=== PATIENT | male | born 1965 | race Caucasian/White ===

== ENCOUNTER 2025-02-19 05:50 | Day surgery (SDC) | payer OTHER ==
[2025-02-15 08:36] VITALS: BP 154/97
[~2025-02-19] VITALS: Ht 182.9 cm; Wt 111.4 kg
[~2025-02-19 05:50] MED LIST: CHLORTHALIDONE25 MG PO; COZAAR100 MG PO; MIDAZOLAM HCL 5 MG/5 ML VIAL IV PRN; SIMVASTATIN20 MG PO; TYLENOL325 MG PO; fentaNYL citrate 100 MCG/2 ML VIAL IV PRN
[2025-02-19 06:04] VITALS: BP 159/110
[2025-02-19] MEDS ORDERED: ROSUVASTATIN CAL5 MG PO (06:08)
[2025-02-19 06:28] VITALS: BP 152/95
[2025-02-19] MEDS ORDERED: propofoL 200 MG/20 ML VIAL ONE (06:33)
[2025-02-19] MEDS ORDERED: LIDOCAINE HCL 1% 5 ML SDV INJ ONE (07:00)
[2025-02-19] MEDS ORDERED: IBLOOD GLUCOSE TEST STRIP 1 EA TEST VI PRN (07:00)
[2025-02-19] MEDS ORDERED: LACTATED RINGER'S 1,000 ML IV SCH (07:00)
[2025-02-19] MEDS ORDERED: LACTATED RINGER'S 1,000 ML IV ONE (08:05)
[2025-02-19 08:49] VITALS: BP 127/93
--- NOTE | 2025-02-19 10:07 | OR ---
[facility] [address], [place] [address] Signed DATE OF OPERATION: 02/19/2025 SURGEON: Ever Lemos MD PREOPERATIVE DIAGNOSES: 1. Change in bowel habits with worsening chronic constipation. 2. Anal/rectal pain. POSTOPERATIVE DIAGNOSES: 1. 4 mm and 6 mm sessile polyps at distal right colon. 2. Minimal internal hemorrhoids. 3. Minimal to moderate sigmoid diverticulosis. PROCEDURE: Colonoscopy with hot biopsy. ESTIMATED BLOOD LOSS: None. INDICATIONS: Fredo is a 59-year-old gentleman, asked to see me for his initial screening colonoscopy. He has no family history of colon cancer or polyps. He said he has had constipation for over 10 years. He thinks it is getting worse over the last year. This represents a change in bowel habits for him. He had a negative FIT test more than one year ago. He has also had a significant hemithyroidectomy for goiter. He now has goiter on the left. It does not seem to affect his voice or his breathing. Nevertheless, we felt it was important to have monitored anesthesia care with propofol infusion for the procedure. In that regard, he needed preoperative blood work and an EKG. He also volunteered to take a ball of magnesium citrate on the day before the full gallon of MiraLAX along with Dulcolax tablets. He said he gets pain and pressure with defecation because of the constipation. He also uses some MiraLAX on a daily basis along with Metamucil for the constipation. In the office, I gave him a pamphlet on colonoscopy. We had reviewed the nature of the test. There is risk including, but not limited to gas bloating, crampy abdominal pain, bleeding, perforation requiring surgery, and missed diagnosis. He understands an adult person has to take him home afterwards. He had expressed understanding and wished to proceed. DESCRIPTION OF PROCEDURE: Fredo was taken into our endoscopy suite and placed in the left lateral decubitus position. 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 A digital rectal exam was performed. No external hemorrhoids. Good sphincter tone. No masses. His prostate is indurated and moderately enlarged. The right is more prominent than the left. The adult colonoscope was introduced and advanced all the way around into the cecum under direct visualization of the camera. It took just a little abdominal compression to get right into the cecum itself. His prep was quite good. The scope was slowly withdrawn. We saw two sessile polyps next to one another in the distal right colon. They were easily removed and destroyed completely with the hot biopsy forceps. He also has diverticula in the sigmoid colon. They were moderate in size, few to moderate in number and scattered about. Once in the rectum, the scope was then retroflexed. He has very minimal internal hemorrhoid tissue. We examined the area around the anus both in the anterior and posterior midline and we could not see any obvious anal fissure and no fistula tracts. After this, the gas was suctioned out and the colonoscope removed. Freod tolerated the procedure quite well. RECOMMENDATIONS: Fredo will follow up in my office in 7 to 14 days to review his biopsy results. Ever Lemos MD ALB/MODL /[id number] cc: ARELI Posadas MD Copies: EVER LEMOS MD ~ Electronically Signed By: EVER LEMOS MD 02/19/25 1007 PATIENT NAME: FREDO NARVAEZ OPERATIVE REPORT DATE OF : 67 REPORT #: [id number] PHYSICIAN: EVER LEMOS MD PCP: ELMA BARROSO PA-C REPORT IS CONFIDENTIAL AND NOT TO BE RELEASED WITHOUT AUTHORIZATION
--- NOTE | 2025-02-19 12:29 | NUR ---
02/19/25 1229 Sheets,Joycelyn 0801 PT ARRIVED TO PACU WITH ORAL AIRWAY AND 10L VIA MASK. RESP EVEN AND UNLABORED. O2 DECREASED 6L VIA MASK. PT ASLEEP AND NONAROUSABLE TO TACTILE. 0820 PT WOKE AND AIRWAY REMOVED AND PT REORIENTED TO PACU. PT DENIES CONCERNS AND REPORTS "I AM SO HAPPY THAT ITS OVER." 0830 HOB INCREASED AND PT REFUSED ANY WATER. PT TEARFUL AND REPORTS "I AM HAPPY EVERYTHING IS OK." 0854 DC INSTRUCTIONS GIVEN AND PT DRESSED HIMSELF AND ALL QUESTIONS ANSWERED. PT DC WITH PAPERWORK AND VIA WC.
--- NOTE | 2025-02-23 12:10 | PATH ---
[facility] [address] [facility] [place] [address] Signed SPECIMEN(S): A DISTAL ASCENDING POLYP SPECIMEN SOURCE: A. DISTAL ASCENDING POLYP CLINICAL HISTORY: Initial screening, diverticulosis, internal hemorrhoids, polyps FINAL PATHOLOGIC DIAGNOSIS: Distal ascending polyp: - Serrated polyp/adenoma (two fragments). JVR:clv MICROSCOPIC EXAMINATION: Histologic sections of all submitted blocks are examined by light microscopy. These findings, together with the gross examination, support the pathologic diagnosis. GROSS DESCRIPTION: The specimen, labeled and designated "[place], distal ascending polyp," is received in formalin and consists of three goel soft tissue fragments, ranging from 0.1-0.3 cm. Entirely submitted in (A1). VB (under the direct supervision of a pathologist) The Gross Description was prepared using a voice recognition system. The report was reviewed for accuracy; however, sound-alike word errors, addition and/or deletions may occur. If there is any question about this report, please contact Client Services. PERFORMING LABORATORY: Technical component was performed by [facility], [address] [place] [id number] (CLIA# [id number]). Professional interpretation was performed by [facility], [address] [place] [id number] (CLIA#: [id number]). Diagnostician: Yosi Wadsworth MD Pathologist Electronically Signed 02/23/2025 Copies: PATIENT NAME: FREDO NARVAEZ PATHOLOGY DATE OF : 67 REPORT #: [id number] PHYSICIAN: CRISTINA MCCURDY PCP: ELMA BARROSO PA-C REPORT IS CONFIDENTIAL AND NOT TO BE RELEASED WITHOUT AUTHORIZATION [address] [address] Signed ~ PATIENT NAME: FREDO NRAVAEZ PATHOLOGY DATE OF : 67 REPORT #: [id number] PHYSICIAN: CRISTINA MCCURDY PCP: ELMA BARROSO PA-C REPORT IS CONFIDENTIAL AND NOT TO BE RELEASED WITHOUT AUTHORIZATION
== END 2025-02-19 08:54 | disposition home or self-care (01) ==
LOC: DS 05:50
PROVIDERS: ATTEND Colon & Rectal Surgery
PROC: 0DBF8ZZ Excision of Right Large Intestine, Via Natural or Artificial Opening Endoscopic (ICD-10-PCS; principal; 2025-02-19 07:30)
DX: Z12.11 Encounter for screening for malignant neoplasm of colon (principal); D12.2 Benign neoplasm of ascending colon; K64.8 Other hemorrhoids; K57.30 Diverticulosis of large intestine without perforation or abscess without bleeding; K59.09 Other constipation; I10 Essential (primary) hypertension; E03.9 Hypothyroidism, unspecified; E78.5 Hyperlipidemia, unspecified; E04.9 Nontoxic goiter, unspecified; R73.03 Prediabetes; Z88.8 Allergy status to other drugs, medicaments and biological substances; Z79.899 Other long term (current) drug therapy
CPT/HCPCS: 00811; 88305; J2704; J7121